=== PATIENT | male | born 1990 | race American Indian/Alaskan Native ===

== ENCOUNTER 2021-12-06 14:13 | Emergency (ER) | payer OTHER ==
[2021-12-06 14:28] VITALS: BP 113/59
[2021-12-06] MEDS ORDERED: KETOROLAC 10 MG TAB PO ONE (15:33)
--- NOTE | 2021-12-06 15:34 | Emergency Department Report ---
ED Lower Extremity HPI - General Chief Complaint: Extremity Injury, Lower Stated Complaint: RIGHT KNEE INJURY Time Seen by Provider: 12/06/21 15:28 Source: patient, EMS Mode of arrival: Stretcher Limitations: No Limitations - History of Present Illness Initial Comments: Mr. Frey is a 31-year-old disabled that comes to the ER with right knee pain. He states that he stepped off the ramp, at work, and since then he has had pain. He then adds that he felt a popping sensation in his knee about a week ago. He did not take anything for the pain prior to ER visit today. He states that the incident today the pain was so severe that is what drove him to come to the ER. He is ambulatory to the ER. However, on exam he sitting on the stretcher with his knee flexed and is hesitant to outstretch it. However, he can extend. Complaint: knee injury -: Gradual, days(s) Injury: Knee: Right Type of Injury: unknown Place: work Severity: mild Severity scale (0 -10): 4 Improves With: immobilization Worsens With: movement Context: other Associated Symptoms: snap/pop sensation - Related Data Previous Rx's Medication Instructions Recorded Last Taken Type Ibuprofen [Motrin] 800 mg PO Q8HR PRN #30 tablet 12/06/21 Unknown Rx Allergies Allergy/AdvReac Type Severity Reaction Status Date / Time No Known Allergies Allergy Unverified 12/06/21 14:28 ED Review of Systems ROS: Stated complaint: RIGHT KNEE INJURY Other details as noted in HPI Comment: All other systems reviewed and negative ED Past Medical Hx - Past Medical History Previous Medical History?: Yes Additional medical history: PTSD; CHRONIC PAIN - Surgical History Past Surgical History?: No - Family History Family history: no significant - Social History Smoking Status: Current Every Day Smoker Substance Use Type: Alcohol - Medications Home Medications: Home Medications Medication Instructions Recorded Confirmed Last Taken Type Ibuprofen [Motrin] 800 mg PO Q8HR PRN #30 tablet 12/06/21 Unknown Rx ED Physical Exam - General Limitations: No Limitations General appearance: alert, in no apparent distress - Head Head exam: Present: atraumatic, normocephalic - Eye Eye exam: Present: normal appearance - ENT ENT exam: Present: mucous membranes moist - Neck Neck exam: Present: normal inspection - Respiratory Respiratory exam: Present: normal lung sounds bilaterally. Absent: respiratory distress - Cardiovascular Cardiovascular Exam: Present: regular rate, normal rhythm. Absent: systolic murmur, diastolic murmur, rubs, gallop - GI/Abdominal GI/Abdominal exam: Present: soft, normal bowel sounds - Rectal Rectal exam: Present: deferred - Extremities Exam Extremities exam: Present: normal inspection - Expanded Lower Extremity Exam Right Knee exam: Present: full ROM, effusion. Absent: tenderness, swelling, abrasion, laceration, ecchymosis, deformity, crepidus, dislocation, erythema Lower Leg exam: Present: normal inspection - Back Exam Back exam: Present: normal inspection - Neurological Exam Neurological exam: Present: alert, oriented X3 - Psychiatric Psychiatric exam: Present: normal affect, normal mood - Skin Skin exam: Present: warm, dry, intact, normal color. Absent: rash ED Course Vital Signs 12/06/21 14:14 Temperature 98.4 F Pulse Rate 84 Respiratory 18 Rate Blood Pressure 113/59 [Left] O2 Sat by Pulse 98 Oximetry - Reevaluation(s) Reevaluation #1: 12/06/21 17:15 Patient is on no home medications ED Lower Extremity MDM - Radiology Data Radiology results: report reviewed, image reviewed NAP - Medical Decision Making XRAY NOTED MEDICATED FOR PAIN NEUROVASC INTACT FOOT WARM; PULSES PLUS 2 NO DISCOLORATION/LESIONS FULL ROM OF LEG Vital Signs 12/06/21 14:14 Temperature 98.4 F Pulse Rate 84 Respiratory 18 Rate Blood Pressure 113/59 [Left] O2 Sat by Pulse 98 Oximetry Patient placed in a knee immobilizer and on crutches. Has been referred to Ortho. Patient being discharged home with discharge planning care including diet, activity, medications and follow-up. He verbalizes understanding of discharge plan of care. - Differential Diagnosis KNEE PAIN Critical care attestation.: If time is entered above; I have spent that time in minutes in the direct care of this critically ill patient, excluding procedure time. ED Disposition Clinical Impression: Knee pain, Knee effusion, right Disposition: 01 HOME / SELF CARE / HOMELESS Is pt being admited?: No Does the pt Need Aspirin: No Condition: Stable Instructions: Knee Effusion Additional Instructions: ICE/REST/ELEVATE LEG CRUTCHES AND KNEE IMMOBILIZER FOR 72 H UNTIL SEEN BY ORTHO REFERRAL BELOW HIGH DOSE MOTRIN FOR PAIN TYLENOL OVER THE COUNTER MAY ALSO BE USED DIET AND ACTIVITY TOLERATED Prescriptions: Ibuprofen [Motrin] 800 mg PO Q8HR PRN #30 tablet PRN Reason: Pain, Moderate (4-6) Referrals: JOCELYNN KILLIAN MD [Primary Care Provider] - 3-5 Days GINGER MA MD [Staff Physician] - 3-5 Days Forms: Work/School Release Form(ED) Time of Disposition: 16:31
--- NOTE | 2021-12-06 16:16 | XRay Report ---
XR knee 3V RT INDICATION / CLINICAL INFORMATION: PAIN. COMPARISON: None available. FINDINGS: BONES/JOINT(S): No acute fracture or subluxation. No significant degenerative changes. No focal bone erosions or focal osteopenia to suggest inflammatory arthropathy. SOFT TISSUES: No significant abnormality. ADDITIONAL FINDINGS: None. Signer Name: Benitez Chaudhry MD Signed: 12/06/2021 4:11 PM Workstation Name: [id number]
== END 2021-12-06 17:17 | disposition home or self-care (01) ==
LOC: ED 14:13
DX: M25.561 Pain in right knee (principal); M25.461 Effusion, right knee
CPT/HCPCS: 99284